=== PATIENT | male | born 1940 | race Caucasian/White ===

== ENCOUNTER 2019-09-28 17:16 | Inpatient (IN) | payer MEDICARE, OTHER ==
[~2019-09-28] VITALS: Ht 182.9 cm; Wt 89.8 kg
[2019-09-28] MEDS ORDERED: ASCORBIC ACID500 MG PO (17:59)
[2019-09-28] MEDS ORDERED: CALCIUM 600 +1 EAC3 PO (17:59)
[2019-09-28] MEDS ORDERED: SAW PALMETTO450 MG PO (17:59)
[2019-09-28] MEDS ORDERED: FISH OIL 1,2001 EACH PO (17:59)
[2019-09-28] MEDS ORDERED: PRAVACHOL40 MG PO (17:59)
[2019-09-28] MEDS ORDERED: ASPIRIN CHEW81 MG PO (17:59)
[2019-09-28] MEDS ORDERED: PRINIVIL20 MG PO (17:59)
[2019-09-28] MEDS ORDERED: FINASTERIDE5 MG PO (17:59)
[2019-09-28] MEDS ORDERED: METFORMIN HCL500 MG PO (17:59)
[2019-09-28] MEDS ORDERED: FLOMAX0.4 MG PO (17:59)
--- NOTE | 2019-09-28 18:05 | NUR ---
received patient as a direct admit. pt is alert, no s/s of distress, ambulatory with no assistance. call light within reach and instructed pt to call for help.
--- NOTE | 2019-09-28 18:10 | NUR ---
called Dr. Disla for new orders/restart home meds. no answer so message was left
--- NOTE | 2019-09-28 18:15 | NUR ---
pt's daughter brought POA and advance directive paperwork. copy was made and placed in chart. code status change to DNAR status per pt's advance directive
[2019-09-28 18:19] VITALS: BP 149/91
[2019-09-28 18:21] VITALS: BP 149/91
[2019-09-28 18:24] LABS: BASOPHILS % 0.4 % (0.0-1.0); EOSINOPHILS # (AUTO) 0.1 (0.0-0.4); HEMATOCRIT 45.6 % (38.2-49.6); HEMOGLOBIN 14.9 g/dL (14.0-18.0); LYMPHOCYTES # (AUTO) 1.8 (1.0-3.2); LYMPHOCYTES % 17.3 % (18.0-39.1); MEAN CORPUSCULAR HEMOGLOBIN 28.8 pg (28-32); MEAN CORPUSCULAR HGB CONC 32.7 g/dL (31-35); NEUTROPHILS # (AUTO) 7.4 (2.1-6.9); NEUTROPHILS % 70.9 % (38.7-80.0); PLATELET COUNT 228 x10e3/uL (140-360); RED BLOOD COUNT 5.18 x10e6/uL (4.3-5.7); RED CELL DISTRIBUTION WIDTH 14.8 % (11.7-14.4)
[2019-09-28 18:44] LABS: ALANINE AMINOTRANSFERASE 16 IU/L (0-55); ALBUMIN/GLOBULIN RATIO 1.2 (0.8-2.0); ALKALINE PHOSPHATASE 70 IU/L (40-150); ANION GAP 16.1 mmol/L (8-16); BLOOD UREA NITROGEN 14 mg/dL (7-26); BUN/CREATININE RATIO 18 (6-25); CALCIUM 9.2 mg/dL (8.4-10.2); CARBON DIOXIDE 23 mmol/L (22-29); CHLORIDE 106 mmol/L (98-107); CREATININE, SERUM 0.79 mg/dL (0.72-1.25); EST GLOMERULAR FILTRATION RATE > 60 ML/MIN (60-); GLUCOSE 101 mg/dL (74-118); POTASSIUM 4.1 mmol/L (3.5-5.1); SODIUM 141 mmol/L (136-145)
[2019-09-28 20:00] VITALS: BP 144/87
[2019-09-28 21:00] VITALS: BP 144/87
[2019-09-28] MEDS ORDERED: GUAIFENESIN/DEXTROMETHORPHAN LIQD 5 ML UDC NG PRN (21:45)
[2019-09-28] MEDS ORDERED: DEXTROSE 50% SYRINGE 50 ML IV PRN (21:45)
[2019-09-29] VITALS (8 sets, daily range): BP systolic 115–151; BP diastolic 54–86
[2019-09-29 05:50] LABS: BASOPHILS % 0.3 % (0.0-1.0); EOSINOPHILS # (AUTO) 0.1 (0.0-0.4); EOSINOPHILS % 1.6 % (0.0-6.0); HEMATOCRIT 41.5 % (38.2-49.6); HEMOGLOBIN 13.7 g/dL (14.0-18.0); LYMPHOCYTES # (AUTO) 2.1 (1.0-3.2); LYMPHOCYTES % 23.1 % (18.0-39.1); MEAN CORPUSCULAR HEMOGLOBIN 28.7 pg (28-32); MEAN CORPUSCULAR VOLUME 86.8 fL (81-99); MONOCYTES # (AUTO) 1.1 (0.2-0.8); MONOCYTES % 11.9 % (4.4-11.3); NEUTROPHILS # (AUTO) 5.6 (2.1-6.9); NEUTROPHILS % 62.7 % (38.7-80.0); PLATELET COUNT 205 x10e3/uL (140-360); RED BLOOD COUNT 4.78 x10e6/uL (4.3-5.7); RED CELL DISTRIBUTION WIDTH 14.8 % (11.7-14.4)
[2019-09-29 06:19] LABS: ANION GAP 13.9 mmol/L (8-16); BLOOD UREA NITROGEN 13 mg/dL (7-26); BUN/CREATININE RATIO 17 (6-25); CALCIUM 8.9 mg/dL (8.4-10.2); CARBON DIOXIDE 25 mmol/L (22-29); CHLORIDE 107 mmol/L (98-107); CHOL/HDL RATIO 3.3 (3.9-4.7); CHOLESTEROL 120 MD/DL (0-199); CREATININE, SERUM 0.78 mg/dL (0.72-1.25); EST GLOMERULAR FILTRATION RATE > 60 ML/MIN (60-); GLUCOSE 102 mg/dL (74-118); HDL CHOLESTEROL 36 MG/DL (40-60); LDL CHOLESTEROL 49 MG/DL (60-130); POTASSIUM 3.9 mmol/L (3.5-5.1); SODIUM 142 mmol/L (136-145); TRIGLYCERIDES 175 MG/DL (0-149)
--- NOTE | 2019-09-29 06:50 | NUR ---
PT COVID IS PENDING. SBAR report was given by Leonor Alamo, PM shift RN. PT WAS FOUND RESTING IN BED IN NO ACUTE DISTRESS. ABLE TO MAKE NEEDS KNOWN. PT DENIES NEEDS. PT WAS EDUCATED ON FALL RISK PRECAUTIONS AND VERBALIZED UNDERSTANDING. CALL LIGHT AND BELONGINGS PLACED NEARBY. WILL CONTINUE TO MONITOR.
--- NOTE | 2019-09-29 07:13 | NUR ---
H&P cc: sob HPI; 79yoM, PCP , developed worsening SOB after diagnosis of COVID19 about 3 weeks ago. Sent to hospital for mgmt. Pt's main symptoms are SNIDER. PMH: COVID19 diagnosis in August 2019, DM2, HTN, HLD, BPH s/p TURP PHSx: TURP, urinary stone related Allergies; see emr Fh/SH; ; no cigs meds; see MAR ROS; no f/c/s/N/V/D/NICOLE/cp/skin rash/vision changes/focal limb weakness/confusion v/s revd PE tired appearing anicteric ns1s2 REDUCED BS; no w soft nt nd no e/t skin dry flat affect a&ox3; [facility] labs/meds revd A/P: Multifocal PNA- azithromycin/loratadine/antitussive SNIDER- d/w - check CT to r/o PE. Hx COVID19 - retesting HTN- cont antiHTN meds HLD- cont statin DM2- hold metformin; use ssi; check hab1c/lipids; use ADA diet BPH- cont flomax Physical deconditioning- PT consult Prop: scd; pepcid; start lovenox BID low dose. dispo: f/u testing; f/u CXR ELIE BERMUDEZ MD, PHD.
[2019-09-29] MEDS: INSULIN REGULAR, HUMAN 100 UNIT/1 ML 3ML VIAL SQ SCH ×4 (07:30→21:00)
--- NOTE | 2019-09-29 07:48 | Diagnostic Imaging Report ---
EXAMINATION: CHEST 2 VIEWS INDICATION: Pneumonia COMPARISON: None FINDINGS: TUBES and LINES: None. LUNGS: Normal lung volumes. Multifocal patchy haziness in both lungs. PLEURA: No pleural effusion or pneumothorax. HEART AND MEDIASTINUM: The cardiomediastinal silhouette is unremarkable. BONES AND SOFT TISSUES: No acute osseous lesion. Soft tissues are unremarkable. UPPER ABDOMEN: No free air under the diaphragm. IMPRESSION: Findings compatible with multifocal pneumonia. Signed by: Jaxson De DO on 09/29/2019 7:45 AM
[2019-09-29] MEDS: TAMSULOSIN HCL 0.4 MG CAP PO SCH (07:49)
[2019-09-29] MEDS: OMEGA 3 POLYUNSAT FATTY ACIDS 1000 MG SOFTGEL PO SCH (07:49)
[2019-09-29] MEDS: AZITHROMYCIN 500MG/NS 250 ML 250 ML IV SCH (07:49)
[2019-09-29] MEDS: FINASTERIDE 5 MG TAB PO SCH (07:49)
[2019-09-29] MEDS: LORATADINE 10 MG TAB PO SCH (07:49)
[2019-09-29] MEDS: ENOXAPARIN SOD INJ 40 MG/0.4 ML SYR SC SCH ×2 (09:00→22:48)
[2019-09-29] MEDS: SAW PALMETTO FRUIT 900 MG PO SCH (09:00)
[2019-09-29] MEDS: CEFTRIAXONE SOD 1 GM/NS 50 ML 50 ML IV SCH (09:00)
[2019-09-29] MEDS: LISINOPRIL 20 MG TAB PO SCH (09:04)
--- NOTE | 2019-09-29 09:30 | NUR ---
PERIPHERAL IV STARTED VIA ASCEPTIC TECHNIQUE TO LEFT ANTECUBITAL VEIN. CATHETER SECURED WITH TAPE. TRANSPARENT DRESSING APPLIED, DATED. LABS DRAWN VIA ASCEPTIC TECHNIQUE. TUBES LABELED AND SENT TO THE LAB. PT TOLERATED WELL Addendum: 09/29/19 at 1049 by Damaris Siddiqi RN 20 GAUGE IV TO LEFT ANTECUBITAL VEIN
[2019-09-29] MEDS ORDERED: SODIUM CHLORIDE 0.9% 50ML 50 ML ONE (10:26)
[2019-09-29] MEDS ORDERED: IOPAMIDOL 370 MG/ML 200 ML INFUS..BTL INJ ONE (10:26)
--- NOTE | 2019-09-29 10:30 | NUR ---
PT OFF THE FLOOR FOR CHEST CT
--- NOTE | 2019-09-29 11:04 | NUR ---
PT BACK TO FLOOR FROM CT
--- NOTE | 2019-09-29 11:52 | Diagnostic Imaging Report ---
EXAM: CT Chest with intravenous contrast 09/29/2019 10:41 AM INDICATION: COMPARISON: Chest x-ray dated the same day. Outside hospital CT dated 09/28/2019. TECHNIQUE: Chest was scanned utilizing a multidetector helical scanner from the lung apex through the level of the adrenal glands following administration of IV contrast. Coronal and sagittal reformations were obtained. Routine protocol was performed. IV CONTRAST: 100mL Isovue 370 RADIATION DOSE: Total DLP: 457 mGy*cm. Dose modulation, iterative reconstruction, and/or weight based adjustment of the mA/kV was utilized to reduce the radiation dose to as low as reasonably achievable. COMPLICATIONS: None FINDINGS: LINES/ TUBES: None. LUNGS AND AIRWAYS: There is lower lobe predominant right greater than left honeycombing, traction bronchiectasis and interlobular septal thickening. There are ill-defined patchy opacities within the right lower lobe, similar to outside hospital CT. Negative for pneumothorax or pleural effusion. HEART AND MEDIASTINUM: The thyroid gland is normal. Prominent right hilar and AP window lymph nodes are noted. The heart is normal in size.. There is no pericardial effusion. Main pulmonary artery is enlarged measuring up to 3.7 cm. Negative for central pulmonary embolism. Thoracic aorta is of normal caliber. UPPER ABDOMEN: Adrenal calcifications are noted, likely related to prior infection or trauma. Dependent gallstone is noted. BONES: Negative for acute osseous abnormality. Advanced multilevel degenerative changes of the spine are noted with diffuse osseous demineralization. SOFT TISSUES: Unremarkable. IMPRESSION: 1. Right greater than left basilar predominant honeycombing, traction bronchiectasis, interlobular septal thickening with areas of groundglass opacities are concerning for usual interstitial pneumonia with fibrotic changes. 2. Patchy opacities within the right lung base are concerning for superimposed infection. Recommend follow-up after treatment to ensure resolution. Probable reactive mediastinal adenopathy. 3. Pulmonary arterial enlargement may relate to underlying pulmonary hypertension. Negative for central pulmonary embolus. Signed by: Bello Emery MD on 09/29/2019 11:49 AM
--- NOTE | 2019-09-29 15:56 | NUR ---
Discontinuing PT services since patient is Mod I in functional mobility. Thank you Addendum: 09/29/19 at 1556 by Darin guillermo PT Amended: Links added.
[2019-09-29] MEDS: CEFEPIME 1GM/NS 0.9% 50 ML 50 ML IV SCH (17:22)
--- NOTE | 2019-09-29 18:45 | NUR ---
COVID PENDING. SBAR REPORT GIVEN TO PM SHIFT RNLeonor.
--- NOTE | 2019-09-29 18:59 | Consultation ---
DATE OF CONSULTATION: Pulmonary Critical Care Consultation CHIEF COMPLAINT: Recent COVID infection followed by a dyspnea on exertion. HISTORY OF PRESENT ILLNESS: The patient is an 79-year-old man. He has a history of COVID in early August. He did not require hospitalization. A subsequent COVID test 3 weeks later was negative. His fever and cough have resolved, but he still has some dyspnea on exertion. He obtained some oxygen at home through Dr. Toscano, but he still notes dyspnea and tachycardia with exertion. He does not report any fever or weight loss. PAST MEDICAL HISTORY: 1. COVID as noted above. 2. Benign prostatic hypertrophy. 3. No prior history of pneumonia or bronchitis. 4. No prior history of asthma. 5. No prior history of heart disease. PAST SURGICAL HISTORY: 1. Status post TURP. 2. Status post nephrolithiasis. SOCIAL HISTORY: The patient does not smoke or drink. FAMILY HISTORY: Family history is noncontributory. ALLERGIES: THE PATIENT HAS NO KNOWN DRUG ALLERGIES. REVIEW OF SYSTEMS: The patient is afebrile. He has no headache. He is not complaining of any neck pain. He has no chest pain. He has no nausea or vomiting. He has no leg edema. PHYSICAL EXAMINATION: VITAL SIGNS: The patient is afebrile. The blood pressure is 125/76, saturation is 96%, and the pulse is 95. HEENT: Shows no facial swelling or erythema. The oropharynx is normal. LYMPHATIC: Shows no submandibular, cervical, or supraclavicular adenopathy. CARDIAC: Reveals regular rate and rhythm with normal S1 and S2. LUNGS: Auscultation of lungs reveals clear breath sounds bilaterally. There is no wheezing. ABDOMEN: Soft and nontender. There is no rebound or guarding. EXTREMITIES: Shows no leg edema or calf tenderness. There is no cyanosis or clubbing. SKIN: Shows no rashes. NEUROLOGICAL: Shows no focal abnormalities. LABORATORY DATA: White blood cell count is 8.9, hemoglobin is 13.7, and the platelet count is 205. BUN to creatinine ratio is normal. Other electrolytes are within normal limits. RADIOGRAPHIC DATA: Chest CT shows some fibrosis with a peripheral distribution. It is most prominent in the lower lobes. There is some associated bronchiectasis. There is no evidence of pulmonary embolism. IMPRESSION: 1. Usual interstitial pneumonitis and bronchiectasis, possibly related to prior COVID infection. 2. Diabetes. 3. Benign prostatic hypertrophy. 4. Hypertension. PLAN: 1. IV antibiotics with coverage for gram-negative rods and organisms associated with bronchiectasis. 2. Continue oxygen. 3. Arrange for pulmonary function testing as outpatient. MD KAMILA Peguero/MODL /[id number]
[2019-09-29] MEDS: ASCORBIC ACID 500 MG TAB PO SCH (22:48)
[2019-09-29] MEDS: OYST-CAL-D 500MG TABLET PO SCH (22:48)
[2019-09-29] MEDS: SIMVASTATIN 20 MG TAB PO SCH (22:48)
[2019-09-29] MEDS: ASPIRIN 81 MG CHEW TAB PO SCH (22:48)
[2019-09-30] VITALS (9 sets, daily range): BP systolic 94–145; BP diastolic 52–88
[2019-09-30] MEDS: CEFEPIME 1GM/NS 0.9% 50 ML 50 ML IV SCH ×2 (06:28→17:00)
--- NOTE | 2019-09-30 06:45 | NUR ---
COVID POSITIVE PT. SBAR report was given by Leonor Alamo, PM shift RN. PT WAS FOUND RESTING IN BED IN NO ACUTE DISTRESS. ABLE TO MAKE NEEDS KNOWN. PT DENIES NEEDS. PT WAS EDUCATED ON FALL RISK PRECAUTIONS AND VERBALIZED UNDERSTANDING. CALL LIGHT AND BELONGINGS PLACED NEARBY. WILL CONTINUE TO MONITOR.
--- NOTE | 2019-09-30 07:02 | NUR ---
IM- progress note O/N see below ROS; no f/c/s/N/V/D/NICOLE/cp/skin rash/vision changes/focal limb weakness/confusion v/s revd PE tired appearing anicteric ns1s2 REDUCED BS; no w soft nt nd no e/t skin dry flat affect a&ox3; [facility] labs/meds revd A/P: Multifocal PNA- azithromycin/loratadine/antitussive SNIDER- d/w - check CT to r/o PE. Hx COVID19 - retesting HTN- cont antiHTN meds HLD- cont statin DM2- hold metformin; use ssi; check hab1c/lipids; use ADA diet BPH- cont flomax Physical deconditioning- PT consult Prop: scd; pepcid; start lovenox BID low dose. dispo: f/u testing; f/u CXR 8-21 Hba1c/LDL 5.5/49; CT no pulmonary embolus; continue antimicrobials and supportive care; O2 PRN. CM to assist in setting up home O2. COVID19 still positive; ELIE BERMUDEZ MD, PHD.
[2019-09-30] MEDS: INSULIN REGULAR, HUMAN 100 UNIT/1 ML 3ML VIAL SQ SCH ×4 (07:30→21:00)
[2019-09-30] MEDS: AZITHROMYCIN 500MG/NS 250 ML 250 ML IV SCH ×2 (08:00→08:30)
[2019-09-30] MEDS: SAW PALMETTO FRUIT 900 MG PO SCH (09:00)
[2019-09-30] MEDS: LORATADINE 10 MG TAB PO SCH (10:06)
[2019-09-30] MEDS: OMEGA 3 POLYUNSAT FATTY ACIDS 1000 MG SOFTGEL PO SCH (10:06)
[2019-09-30] MEDS: TAMSULOSIN HCL 0.4 MG CAP PO SCH (10:06)
[2019-09-30] MEDS: ENOXAPARIN SOD INJ 40 MG/0.4 ML SYR SC SCH ×2 (10:07→21:00)
[2019-09-30] MEDS: LISINOPRIL 20 MG TAB PO SCH (10:07)
[2019-09-30] MEDS: FINASTERIDE 5 MG TAB PO SCH (10:07)
--- NOTE | 2019-09-30 17:34 | Progress Note ---
DATE: SUBJECTIVE: The patient still has some dyspnea on exertion. He does not complain of fever or cough. PHYSICAL EXAMINATION: VITAL SIGNS: Blood pressure is 124/70, saturation is 97% and the pulse is 83. HEENT: No facial swelling or erythema. LYMPHATIC: No submandibular, cervical, or supraclavicular adenopathy. CARDIAC: Regular rate and rhythm with normal S1 and S2. LUNGS: Auscultation of lungs reveals rhonchorous breath sounds bilaterally. There is no wheezing. ABDOMEN: Soft, nontender. There is no rebound or guarding. EXTREMITIES: No leg edema or calf tenderness. There is no cyanosis or clubbing. SKIN: No rashes. LABORATORY DATA: CBC is within normal limits. IMPRESSION: 1. Usual interstitial pneumonitis, pattern of fibrosis and some bronchiectasis, possibly secondary to COVID-19 infection. 2. Benign prostatic hypertrophy. 3. Diabetes. PLAN: 1. Arrange for home oxygen. 2. Complete p.o. antibiotics as outpatient. 3. Arrange for outpatient pulmonary function testing. Kwaku Durham MD Concetta/JIMMIE /[id number]
--- NOTE | 2019-09-30 19:55 | NUR ---
Received pt in bed awake, no c/o at this time. No s/sx of acute distress noted, bed in low and locked position, call light and personal items within reach. Bedside report given. Will cont to mon.
[2019-09-30] MEDS: SIMVASTATIN 20 MG TAB PO SCH (21:00)
[2019-09-30] MEDS: ASPIRIN 81 MG CHEW TAB PO SCH (21:00)
[2019-09-30] MEDS: ASCORBIC ACID 500 MG TAB PO SCH (21:00)
[2019-09-30] MEDS: OYST-CAL-D 500MG TABLET PO SCH (21:00)
[2019-10-01] VITALS: BP 118/63
[2019-10-01 04:00] VITALS: BP 104/59
[2019-10-01] MEDS: CEFEPIME 1GM/NS 0.9% 50 ML 50 ML IV SCH (05:00)
[2019-10-01] MEDS ORDERED: KEFLEX500 MG PO (07:27)
[2019-10-01] MEDS ORDERED: LORATADINE10 MG PO (07:27)
[2019-10-01] MEDS ORDERED: TESSALON PERLE100 MG PO (07:27)
[2019-10-01] MEDS ORDERED: ZITHROMAX500 MG PO (07:27)
[2019-10-01] MEDS ORDERED: Guaifenesin/Dextromethorphan NG (07:27)
[2019-10-01] MEDS: INSULIN REGULAR, HUMAN 100 UNIT/1 ML 3ML VIAL SQ SCH ×2 (07:30→11:30)
--- NOTE | 2019-10-01 07:30 | NUR ---
D/C summary Principal dx: Multifocal PNA- azithromycin/loratadine/antitussive SNIDER- d/w - check CT to r/o PE. Persistence of COVID19 positivity Secondary Dx: Hx COVID19 - retesting HTN- cont antiHTN meds HLD- cont statin DM2- hold metformin; use ssi; check hab1c/lipids; use ADA diet BPH- cont flomax Physical deconditioning- PT consult Prop: scd; pepcid; start lovenox BID low dose. dispo: f/u testing; f/u CXR 8-21 Hba1c/LDL 5.5/49; CT no pulmonary embolus; continue antimicrobials and supportive care; O2 PRN. CM to assist in setting up home O2. COVID19 still positive; d/c home with Home O2 stable f/u pcp 2 days and Yash 1 week for PFT d/c>35mins ELIE BERMUDEZ MD, PHD.
[2019-10-01 08:00] VITALS: BP 127/76
[2019-10-01] MEDS ORDERED: AZITHROMYCIN 250 MG TAB PO SCH (08:00)
--- NOTE | 2019-10-01 08:29 | NUR ---
Spoke with Dr. Disla, and he is discharging pt home today on home oxygen. Spoke with Tani Franco. Oxygen delivered to nurse Daniela CRUZ to give to pt who is in COVID Isolation/Droplet. Instructions to pt to call [facility] before he leaves hospital, so that they can meet him to deliver home oxygen set up.
[2019-10-01] MEDS: SAW PALMETTO FRUIT 900 MG PO SCH (09:00)
[2019-10-01 09:42] VITALS: BP 127/76
[2019-10-01] MEDS: TAMSULOSIN HCL 0.4 MG CAP PO SCH (09:43)
[2019-10-01] MEDS: ENOXAPARIN SOD INJ 40 MG/0.4 ML SYR SC SCH (09:43)
[2019-10-01] MEDS: FINASTERIDE 5 MG TAB PO SCH (09:43)
[2019-10-01] MEDS: LORATADINE 10 MG TAB PO SCH (09:43)
[2019-10-01] MEDS: OMEGA 3 POLYUNSAT FATTY ACIDS 1000 MG SOFTGEL PO SCH (09:43)
[2019-10-01] MEDS: LISINOPRIL 20 MG TAB PO SCH (09:44)
--- NOTE | 2019-10-01 09:44 | NUR ---
PATIENT IS AWAKE, ALERT, AND IN STABLE CONDITION WITH NO S/S OF RESPIRATORY DISTRESS. NO PAIN VOICED. CALL LIGHT IS WITHIN REACH, PATIENT INSTRUCTED TO CALL FOR ASSISTANCE NEEDED.
--- NOTE | 2019-10-01 13:30 | NUR ---
PATIENT DISCHARGE HOME- PATIENT OFF THE UNIT AT 1312 PER WHEELCHAIR TO THE FRONT LOBBY ACCOMPANIED BY PCT WITH 02 APPLIED AT 3L NC. PATIENT IN STABLE CONDITION WITH NO S/S OF RESPIRATORY DISTRESS. NO PAIN VOICED. IV'S REMOVED WITH TIP INTACT. DISCHARGE TEACHING, INSTRUCTIONS, AND MEDICATIONS GIVEN TO THE PATIENT. ALL PERSONAL ITEMS INCLUDING THE O2 TANK GIVEN TO THE PATIENT.
== END 2019-10-01 13:12 | disposition home or self-care (01) | DRG 177 ==
LOC: MED/SURG3 17:16
PROVIDERS: ADMIT Internal Medicine; ATTEND Internal Medicine
DX: U07.1 COVID-19 (principal); J12.89 Other viral pneumonia; I10 Essential (primary) hypertension; N40.0 Benign prostatic hyperplasia without lower urinary tract symptoms; E11.9 Type 2 diabetes mellitus without complications; E78.5 Hyperlipidemia, unspecified; Z99.81 Dependence on supplemental oxygen
CPT/HCPCS: 36415; 71046; 71260; 80048; 80053; 80061; 82728; 82948; 83036; 85025; 85379; J0456; J0692; J0696; J1650; Q9967; U0002